=== PATIENT | male | born 1990 | race Two or more races ===

== ENCOUNTER 2020-06-22 14:22 | Emergency (ER) | payer MEDICAID, OTHER ==
[~2020-06-22] VITALS: Ht 172.7 cm; Wt 68.0 kg
[2020-06-22 15:09] VITALS: BP 149/83
== END 2020-06-22 16:44 | disposition home or self-care (01) ==
LOC: ER 14:22
DX: J35.8 Other chronic diseases of tonsils and adenoids (principal)